=== PATIENT | female | born 1960 | race Caucasian/White ===

== ENCOUNTER → 2019-07-26 | Outpatient (CLI) | payer OTHER ==
--- NOTE | 2019-07-26 15:01 | KCIC ---
Bilateral knee radiographs 07/26/2019 CLINICAL HISTORY: Painful osteoarthritis of both knees. Standing AP and lateral and crosstable lateral digital radiographs of both knees were obtained. No fracture or dislocation of either knee is seen. Moderate to severe degenerative changes are seen involving all 3 compartments of both knees, left greater than right. These degenerative changes consist of joint compartment narrowing, subchondral sclerosis and associated osteophyte formation. The most significant degenerative changes involve the patellofemoral compartments of both knees. The patellofemoral distances on the lateral radiographs are narrowed measuring 2.4 mm on the left knee and 4 mm on the right knee. No joint effusion is seen. Phleboliths are seen throughout the soft tissues of both knees. IMPRESSION: Moderate to severe degenerative changes are seen involving both knees particularly the patellofemoral compartments, left greater than right. No acute osseous abnormality is seen. Electronically signed by: Juan David Saba MD (07/26/2019 2:58 PM) [id number]
== END ==
LOC: KCIC 13:28
PROVIDERS: ATTEND Physical Medicine & Rehabilitation
DX: M17.0 Bilateral primary osteoarthritis of knee (principal); M25.762 Osteophyte, left knee; M25.761 Osteophyte, right knee; I87.8 Other specified disorders of veins
CPT/HCPCS: 73562